=== PATIENT | male | born 2000 | race Caucasian/White ===

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

== ENCOUNTER 2022-05-18 17:24 | Emergency (ER) | payer OTHER ==
[2022-05-18 18:21] VITALS: TEMP 98.1; BMI 29.1
[2022-05-18 19:37] VITALS: BP 110/68; PULSE 72; RESP 19
[2022-05-18 19:50] LABS: EPI CELLS 9 /uL (0-25.1); HYALINE CASTS 0 /uL (0-3.1); PH,URINE 5.5 (5.0-8.0); URINE APPEARANCE CLEAR; URINE BACTERIA 27 /uL (0-1359); URINE BILIRUBIN NEGATIVE (NEGATIVE); URINE COLOR YELLOW; URINE GLUCOSE (UA) NEGATIVE (NEGATIVE); URINE KETONE NEGATIVE (NEGATIVE); URINE LEUK ESTERASE 1+ (NEGATIVE); URINE NITRITE NEGATIVE (NEGATIVE); URINE PROTEIN NEGATIVE (NEGATIVE); URINE RBC 3 /uL (0-23.9); URINE WBC 29 /uL (0-25.8)
== END 2022-05-18 20:08 | disposition home or self-care (01) ==
LOC: JERFT 17:24 → JER 17:24 → JERFT 20:08
DX: N48.1 Balanitis (principal)
CPT/HCPCS: 36415; 81003; 86780; 87086; 87491; 87591; 99283-25